=== PATIENT | female | born 1950 | race Caucasian/White ===

== ENCOUNTER 2025-10-18 14:41 | Inpatient (IN) | payer MEDICARE, OTHER ==
[~2025-10-18] VITALS: Ht 162.6 cm; Wt 80.0 kg
[2025-10-18] MEDS ORDERED: 0.9% SODIUM CHLORIDE 10 ML SYRINGE IVP PRN (15:00)
[2025-10-18] MEDS ORDERED: ATOR40TA28 PO (15:09)
[2025-10-18] MEDS ORDERED: SERT-162 PO (15:09)
[2025-10-18] MEDS ORDERED: ALLO100T50 PO (15:09)
[2025-10-18] MEDS ORDERED: BACL10TA PO (15:09)
[2025-10-18] MEDS ORDERED: ATEN-187 PO (15:09)
[2025-10-18] MEDS ORDERED: SEMA3TAB4 PO (15:09)
[2025-10-18] MEDS ORDERED: EMPA25TA3 PO (15:09)
[2025-10-18] MEDS ORDERED: FLUT16SP NASAL (15:09)
[2025-10-18] MEDS ORDERED: HYDR-4072 PO (15:09)
[2025-10-18] MEDS ORDERED: LISI-661 PO (15:09)
[2025-10-18] MEDS ORDERED: SENN-376 PO (15:09)
[2025-10-18 15:30] LABS: PLATELET COUNT (AUTO) 190 K/uL (150-450); RED BLOOD CELL COUNT(AUTO) 3.71 MIL/uL (4.00-5.20); RED CELL DISTRIBUTION WIDTH 18.5 % (11.5-14.5); WHITE BLOOD COUNT (AUTO) 9.7 K/uL (4.5-11.0)
[2025-10-18 15:36] LABS: CALCIUM, TOTAL 8.7 mg/dL (8.8-10.5); CREATININE 3.37 mg/dL (0.60-1.30); GLOMERULAR FILTR. RATE CALC 13 mL/min (>60); GLUCOSE,RANDOM 179 mg/dL (70-110); SODIUM SERUM 134 mmol/L (136-145); UREA NITROGEN, BLOOD 60 mg/dL (7-18)
[2025-10-18] MEDS: SODIUM CHLORIDE 0.9% 2,200 ML IV ONE (15:38)
[2025-10-18 15:45] LABS: ASPARTATE AMINOTRANSFERASE 488 U/L (15-37); TOTAL PROTEIN, SERUM 7.4 g/dL (6.4-8.2)
[2025-10-18 15:46] LABS: LACTIC ACID 0.9 mmol/L (0.4-2.0)
[2025-10-18 15:55] LABS: COVID AG,FIA SOURCE NASAL SWAB
[2025-10-18 16:03] LABS: TROPONIN I-HIGH SENSITIVITY 15 ng/L (<51)
[2025-10-18 16:26] LABS: SARS-COV2 (COVID) ANTIGEN,FIA Negative (Negative)
[2025-10-18 16:30] LABS: INFLUENZA TYPE A NEGATIVE FOR TYPE A (NEGATIVE); INFLUENZA TYPE B NEGATIVE FOR TYPE B (NEGATIVE)
[2025-10-18] MEDS ORDERED: INSU100V37 SQ (16:34)
[2025-10-18] MEDS ORDERED: DEXTROSE 50%-WATER 25 GM/50 ML SYRINGE IVP PRN (16:45)
[2025-10-18 17:30] LABS: APPEARANCE,URINE HAZY (CLEAR); GLUCOSE, URINE (UA) NEGATIVE (NEGATIVE); LEUKOCYTE ESTERASE ,URINE LARGE (NEGATIVE); NITRATE,URINE NEGATIVE (NEGATIVE); OCCULT BLOOD,URINE SMALL (NEGATIVE); SPECIFIC GRAVITIY, URINE 1.019 (1.003-1.030)
[2025-10-18] MEDS: PIPERACILLIN/TAZO 3.375 GM/D5W 50 ML IV ONE (17:42)
[2025-10-18] MEDS: NOREPINEPHRINE 8 MG/0.9 % NACL 250 ML IV PRN (18:20)
[2025-10-18 18:40] LABS: SULFOSALICYLIC ACID,URINE 1+ (Negative)
[2025-10-18 18:41] LABS: SQUAMOUS EPITHELIAL CELL,UR Rare /LPF (None Seen)
[2025-10-18 20:00] VITALS: BP 99/49; PULSE 55; RESP 18; TEMP 97.6; O2SAT 98
[2025-10-18] MEDS: DOCUSATE SODIUM 100 MG CAPSULE PO SCH (21:00)
[2025-10-18] MEDS: ETHYL ALCOHOL 62% ANTISEPTIC NASAL SANITIZER 0.6 ML AMPUL NASAL SCH (21:29)
[2025-10-18] MEDS: CHLORHEXIDINE GLUCONATE 2% TOWELETTE [2'S/6'S] TP SCH (21:30)
[2025-10-18] MEDS ORDERED: NOREPINEPHRINE 8 MG/0.9 % NACL 250 ML IV PRN (21:45)
[2025-10-19] VITALS (12 sets, daily range): BP systolic 82–194; BP diastolic 52–97; PULSE 54–86; RESP 12–25; TEMP 97–102.6; O2SAT 96–100
[2025-10-19] MEDS: HEPARIN SODIUM,PORCINE 5,000 UNITS/ML VIAL SQ SCH (00:36)
[2025-10-19] MEDS ORDERED: SODIUM CHLORIDE 0.9% 250 ML IV ONE (01:10)
[2025-10-19] MEDS: ONDANSETRON HCL 4 MG/2 ML VIAL IVP PRN (01:20)
[2025-10-19] MEDS: PIPERACILLIN SODIUM/TAZOBACTAM 2.25 GM in DEXTROSE 5%-WATER 50 ML IV SCH (01:22)
[2025-10-19] MEDS: METOCLOPRAMIDE HCL 5 MG/ML 2 ML VIAL IVP ONE ×2 (02:15→09:00)
[2025-10-19] MEDS: DEXTROSE 5%-LACTATED RINGERS 1,000 ML IV SCH (02:28)
[2025-10-19 05:20] LABS: GLUCOMETER DEV NAME(LOC) ICU.S7; GLUCOSE,POINT OF CARE 130 MG/DL (70-110)
[2025-10-19 05:29] LABS: PLATELET COUNT (AUTO) 181 K/uL (150-450); RED BLOOD CELL COUNT(AUTO) 3.50 MIL/uL (4.00-5.20); RED CELL DISTRIBUTION WIDTH 18.4 % (11.5-14.5); WHITE BLOOD COUNT (AUTO) 10.7 K/uL (4.5-11.0)
[2025-10-19 05:41] LABS: PHOSPHORUS 4.1 mg/dL (2.5-4.9)
[2025-10-19 06:01] LABS: CALCIUM, TOTAL 8.0 mg/dL (8.8-10.5); CREATININE 3.16 mg/dL (0.60-1.30); GLOMERULAR FILTR. RATE CALC 14.0 mL/min (>60); GLUCOSE,RANDOM 188.0 mg/dL (70-110); SODIUM SERUM 138.0 mmol/L (136-145); UREA NITROGEN, BLOOD 57.0 mg/dL (7-18)
[2025-10-19] MEDS: ACETAMINOPHEN 500 MG/ISO-OSM 50 ML IV ONE (06:33)
[2025-10-19] MEDS: NOREPINEPHRINE 8 MG/0.9 % NACL 250 ML IV PRN (07:00)
[2025-10-19] MEDS: PANTOPRAZOLE SODIUM 40 MG DR TABLET PO SCH (09:00)
[2025-10-19] MEDS ORDERED: ETOMIDATE 2 MG/ML 10 ML VIAL ONE (09:42)
[2025-10-19 09:51] LABS: GLUCOMETER DEV NAME(LOC) ICUN.7; GLUCOSE,POINT OF CARE 180 MG/DL (70-110)
[2025-10-19] MEDS: TRANEXAMIC ACID 1,000 MG in DEXTROSE 5%-WATER 50 ML IV ONE (10:20)
[2025-10-19] MEDS: ETOMIDATE 2 MG/ML 10 ML VIAL IVP ONE (10:38)
[2025-10-19] MEDS: ROCURONIUM BROMIDE 10 MG/ML 5 ML VIAL IVP ONE (10:38)
[2025-10-19] MEDS: CLINDAMYCIN 300 MG/D5% WATER 50 ML IV SCH (11:12)
[2025-10-19 12:08] LABS: ABG A-A DIFF O2 441.6 mmHg (10-20.0); ABG BASE EXCESS -9.3 mmol/L (-2.0-3.0); ABG CARBOXYHEMOGLOBIN 0.3 % (0.5-1.5); ABG HCO3 17.6 mmol/L (21.0-28.0); ABG METHEMOGLOBIN 0.3 % (0.0-1.5); ABG OXYGEN CONTENT 14.7 mL/dL (15.0-23.0); ABG OXYGEN SATURATION 99.2 % (94.0-98.0); ABG OXYHEMOGLOBIN 98.6 % (94.0-98.0); ABG PCO2 35 mmHg (32.0-45.0); ABG PH 7.310 (7.350-7.450); ABG TOTAL HEMOGLOBIN 10.2 G/dL (12.0-16.0); ALLEN TEST, BLOOD GAS Positive; FRACTIONATED INSPIRED OXYGEN 100.0 % (21-100.0); PO2, ARTERIAL BG 239.1 mmHg (83.0-108.0); SITE, BLOOD GAS RT RADIAL; SOURCE, BLOOD GAS ARTERIAL; TEMPERATURE, FAHRENHEIT, BG 97.0 FAHREN (96.0-98.6)
[2025-10-19] MEDS: MAGNESIUM SULFATE 2 GM/WATER 50 ML IV ONE (12:08)
[2025-10-19 12:09] LABS: O2 DEVICE,BLOOD GAS VENTILATOR (ROOM AIR); PATIENT RATE, BG 20.0 min.; PEEP,BG 5 cm H2O; SET RATE, BG 20.0 min.; SPONTANEOUS VT, BG 385 ml; VT, ABG 380 ml
[2025-10-19] MEDS: INSULIN LISPRO 100 UNITS/ML SQ PRN ×2 (12:45→18:30)
[2025-10-19 12:55] LABS: GLUCOMETER DEV NAME(LOC) ICU.S7; GLUCOSE,POINT OF CARE 217 MG/DL (70-110)
[2025-10-19] MEDS ORDERED: DEXTROSE 50%-WATER 25 GM/50 ML SYRINGE IVP PRN (13:15)
[2025-10-19] MEDS: RINGERS SOLUTION,LACTATED 1,000 ML IV ONE (13:32)
[2025-10-19 13:54] LABS: CREATININE,URINE RANDOM 73.3 mg/dL (30.0-125.0); PROTEIN,URINE RANDOM 139.0 mg/dL (0-11.9); UREA NITROGEN,URINE RANDOM 372.0 mg/dL (350-1000)
[2025-10-19] MEDS: POTASSIUM CHL 10 MEQ/WATER 50 ML IV SCH (14:26)
[2025-10-19 15:31] LABS: CALCIUM, TOTAL 8.2 mg/dL (8.8-10.5); CREATININE 3.12 mg/dL (0.60-1.30); GLOMERULAR FILTR. RATE CALC 15.0 mL/min (>60); GLUCOSE,RANDOM 238.0 mg/dL (70-110); SODIUM SERUM 139.0 mmol/L (136-145); UREA NITROGEN, BLOOD 55.0 mg/dL (7-18)
[2025-10-19] MEDS: PROPOFOL 1000 MG/ISO-OSM 100 ML IV PRN (15:52)
[2025-10-19 18:41] LABS: GLUCOMETER DEV NAME(LOC) ICUN.7; GLUCOSE,POINT OF CARE 184 MG/DL (70-110)
[2025-10-19 21:01] LABS: CALCIUM, TOTAL 8.4 mg/dL (8.8-10.5); CREATININE 2.95 mg/dL (0.60-1.30); GLOMERULAR FILTR. RATE CALC 16.0 mL/min (>60); GLUCOSE,RANDOM 181.0 mg/dL (70-110); SODIUM SERUM 139.0 mmol/L (136-145); UREA NITROGEN, BLOOD 52.0 mg/dL (7-18)
[2025-10-19] MEDS: FentaNYL CIT 1000MCG/0.9% NACL 100 ML IV PRN (21:26)
[2025-10-20] VITALS (14 sets, daily range): BP systolic 107–129; BP diastolic 54–70; PULSE 50–75; RESP 20–21; TEMP 98.7–101; O2SAT 95–100
[2025-10-20 05:31] LABS: GLUCOMETER DEV NAME(LOC) ICUN.7; GLUCOSE,POINT OF CARE 116 MG/DL (70-110)
[2025-10-20 05:39] LABS: PLATELET COUNT (AUTO) 204 K/uL (150-450); RED BLOOD CELL COUNT(AUTO) 3.39 MIL/uL (4.00-5.20); RED CELL DISTRIBUTION WIDTH 18.8 % (11.5-14.5); WHITE BLOOD COUNT (AUTO) 12.2 K/uL (4.5-11.0)
[2025-10-20 05:49] LABS: CALCIUM, TOTAL 8.5 mg/dL (8.8-10.5); CREATININE 2.9 mg/dL (0.60-1.30); GLOMERULAR FILTR. RATE CALC 16.0 mL/min (>60); GLUCOSE,RANDOM 162.0 mg/dL (70-110); SODIUM SERUM 140.0 mmol/L (136-145); UREA NITROGEN, BLOOD 49.0 mg/dL (7-18)
[2025-10-20 05:55] LABS: PHOSPHORUS 3.6 mg/dL (2.5-4.9)
[2025-10-20 08:21] LABS: GLUCOMETER DEV NAME(LOC) ICUN.7; GLUCOSE,POINT OF CARE 152 MG/DL (70-110)
[2025-10-20] MEDS ORDERED: POTASSIUM CHL 10 MEQ/WATER 50 ML IV ONE (10:00)
[2025-10-20] MEDS: POTASSIUM CHL 10 MEQ/WATER 50 ML IV SCH (10:28)
[2025-10-20] MEDS: SODIUM CHLORIDE 0.9% 1,000 ML IV SCH (10:28)
[2025-10-20] MEDS ORDERED: SODIUM CHLORIDE 0.9% 250 ML IV ONE (11:08)
[2025-10-20] MEDS ORDERED: HEPARIN SODIUM,PORCINE 5,000 UNITS/ML VIAL SQ SCH (12:00)
[2025-10-20 12:26] LABS: GLUCOMETER DEV NAME(LOC) ICUN.7; GLUCOSE,POINT OF CARE 129 MG/DL (70-110)
[2025-10-20 18:40] LABS: GLUCOMETER DEV NAME(LOC) ICUN.7; GLUCOSE,POINT OF CARE 134 MG/DL (70-110)
[2025-10-20] MEDS: HEPARIN SODIUM,PORCINE 5,000 UNITS/ML VIAL SQ SCH (23:37)
[2025-10-21] VITALS (11 sets, daily range): BP systolic 116–152; BP diastolic 61–71; PULSE 48–93; RESP 20–26; TEMP 97.6–98.9; O2SAT 93–100
[2025-10-21 04:43] LABS: C.DIFF GDH ANTIGEN, Stool Negative (Negative); C.DIFF TOXINS A&B, Stool Negative (Negative)
[2025-10-21 05:21] LABS: GLUCOMETER DEV NAME(LOC) ICUN.7; GLUCOSE,POINT OF CARE 140 MG/DL (70-110)
[2025-10-21 05:48] LABS: PLATELET COUNT (AUTO) 249 K/uL (150-450); RED BLOOD CELL COUNT(AUTO) 3.28 MIL/uL (4.00-5.20); RED CELL DISTRIBUTION WIDTH 18.8 % (11.5-14.5); WHITE BLOOD COUNT (AUTO) 12.0 K/uL (4.5-11.0)
[2025-10-21 06:00] LABS: CALCIUM, TOTAL 8.4 mg/dL (8.8-10.5); CREATININE 2.48 mg/dL (0.60-1.30); GLOMERULAR FILTR. RATE CALC 19.0 mL/min (>60); GLUCOSE,RANDOM 149.0 mg/dL (70-110); PHOSPHORUS 3.8 mg/dL (2.5-4.9); SODIUM SERUM 141.0 mmol/L (136-145); UREA NITROGEN, BLOOD 42.0 mg/dL (7-18)
[2025-10-21] MEDS: PIPERACILLIN SODIUM/TAZOBACTAM 2.25 GM in DEXTROSE 5%-WATER 50 ML IV SCH (09:19)
[2025-10-21 14:11] LABS: ABG BASE EXCESS -9.1 mmol/L (-2.0-3.0); ABG CARBOXYHEMOGLOBIN 0.2 % (0.5-1.5); ABG HCO3 17.7 mmol/L (21.0-28.0); ABG METHEMOGLOBIN 0.3 % (0.0-1.5); ABG OXYGEN CONTENT 13.1 mL/dL (15.0-23.0); ABG OXYGEN SATURATION 93.3 % (94.0-98.0); ABG OXYHEMOGLOBIN 92.8 % (94.0-98.0); ABG PCO2 35 mmHg (32.0-45.0); ABG PH 7.310 (7.350-7.450); ABG TOTAL HEMOGLOBIN 10.0 G/dL (12.0-16.0); FRACTIONATED INSPIRED OXYGEN 30.0 % (21-100.0); PO2, ARTERIAL BG 72.0 mmHg (83.0-108.0); SOURCE, BLOOD GAS ARTERIAL; TEMPERATURE, FAHRENHEIT, BG 98.7 FAHREN (96.0-98.6)
[2025-10-21 14:12] LABS: ABG A-A DIFF O2 100.8 mmHg (10-20.0); O2 DEVICE,BLOOD GAS VENTILATOR (ROOM AIR); PATIENT RATE, BG 23.0 min.; PEEP,BG 5 cm H2O; PRESSURE SUPPORT, BG 5 cm H2O; SITE, BLOOD GAS RT BRACHIAL; SPONTANEOUS VT, BG 310 ml; VENT MODE, BG Press. Support Vent. (ROOM AIR)
[2025-10-21 14:55] LABS: GLUCOMETER DEV NAME(LOC) ICU.S7; GLUCOSE,POINT OF CARE 139 MG/DL (70-110)
[2025-10-21 17:15] LABS: GLUCOMETER DEV NAME(LOC) ICUN.7; GLUCOSE,POINT OF CARE 139 MG/DL (70-110)
[2025-10-21] MEDS ORDERED: SODIUM CHLORIDE 0.9% 250 ML IV ONE (20:29)
[2025-10-21 21:21] LABS: GLUCOMETER DEV NAME(LOC) ICUN.7; GLUCOSE,POINT OF CARE 134 MG/DL (70-110)
[2025-10-22] VITALS: BP 168/68; PULSE 92; RESP 15; TEMP 100.2; O2SAT 98
[2025-10-22 04:00] VITALS: BP 140/69; PULSE 82; RESP 26; TEMP 99.4; O2SAT 82
[2025-10-22 06:42] LABS: PLATELET COUNT (AUTO) 290 K/uL (150-450); RED BLOOD CELL COUNT(AUTO) 3.39 MIL/uL (4.00-5.20); RED CELL DISTRIBUTION WIDTH 18.6 % (11.5-14.5); WHITE BLOOD COUNT (AUTO) 9.2 K/uL (4.5-11.0)
[2025-10-22 07:05] LABS: CALCIUM, TOTAL 8.6 mg/dL (8.8-10.5); CREATININE 2.2 mg/dL (0.60-1.30); GLOMERULAR FILTR. RATE CALC 22.0 mL/min (>60); GLUCOSE,RANDOM 130.0 mg/dL (70-110); SODIUM SERUM 145.0 mmol/L (136-145); UREA NITROGEN, BLOOD 38.0 mg/dL (7-18)
[2025-10-22 07:21] LABS: GLUCOMETER DEV NAME(LOC) ICU.S7; GLUCOSE,POINT OF CARE 131 MG/DL (70-110)
[2025-10-22 07:21] LABS: GLUCOMETER DEV NAME(LOC) ICU.S7; GLUCOSE,POINT OF CARE 119 MG/DL (70-110)
[2025-10-22 08:00] VITALS: BP 157/80; PULSE 70; RESP 14; TEMP 99.1; O2SAT 97
[2025-10-22] MEDS: POTASSIUM CHL 10 MEQ/WATER 50 ML IV SCH (10:31)
[2025-10-22] MEDS ORDERED: SODIUM CHLORIDE 0.9% 250 ML IV ONE (11:28)
[2025-10-22] MEDS: SODIUM CHLORIDE 0.45% 1,000 ML IV SCH (11:31)
[2025-10-22 12:00] VITALS: BP 133/65; PULSE 74; RESP 15; TEMP 99.2; O2SAT 95
[2025-10-22 13:36] LABS: GLUCOMETER DEV NAME(LOC) ICU.S7; GLUCOSE,POINT OF CARE 119 MG/DL (70-110)
[2025-10-22 16:00] VITALS: BP 135/59; PULSE 96; RESP 12; TEMP 98.1; O2SAT 96
[2025-10-22 19:44] VITALS: BP 167/67; PULSE 88; RESP 17; TEMP 98.1; O2SAT 94
[2025-10-22 20:05] LABS: GLUCOMETER DEV NAME(LOC) ICU.S7; GLUCOSE,POINT OF CARE 229 MG/DL (70-110)
[2025-10-22] MEDS: CefTRIAXone 1 GM/DEXTROSE 50 ML IV SCH (21:04)
[2025-10-23 00:17] VITALS: BP 174/70; PULSE 85; RESP 19; TEMP 98.4; O2SAT 95
[2025-10-23 04:26] VITALS: BP 149/53; PULSE 92; RESP 16; TEMP 97.2; O2SAT 95
[2025-10-23 07:48] VITALS: BP 152/77; PULSE 101; RESP 18; TEMP 98.2; O2SAT 93
[2025-10-23 07:59] LABS: PLATELET COUNT (AUTO) 299 K/uL (150-450); RED BLOOD CELL COUNT(AUTO) 3.40 MIL/uL (4.00-5.20); RED CELL DISTRIBUTION WIDTH 18.9 % (11.5-14.5); WHITE BLOOD COUNT (AUTO) 8.3 K/uL (4.5-11.0)
[2025-10-23 08:19] LABS: CALCIUM, TOTAL 8.5 mg/dL (8.8-10.5); CREATININE 1.69 mg/dL (0.60-1.30); GLOMERULAR FILTR. RATE CALC 30.0 mL/min (>60); GLUCOSE,RANDOM 157.0 mg/dL (70-110); SODIUM SERUM 140.0 mmol/L (136-145); UREA NITROGEN, BLOOD 33.0 mg/dL (7-18)
[2025-10-23 08:31] LABS: GLUCOMETER DEV NAME(LOC) 5S.2E; GLUCOSE,POINT OF CARE 165 MG/DL (70-110)
[2025-10-23 08:31] LABS: GLUCOMETER DEV NAME(LOC) 5S.2E; GLUCOSE,POINT OF CARE 174 MG/DL (70-110)
[2025-10-23 11:20] VITALS: BP 153/79; PULSE 96; RESP 15; TEMP 98.1; O2SAT 93
[2025-10-23] MEDS: POTASSIUM CHLORIDE 20 MEQ ER TABLET PO ONE (11:38)
[2025-10-23] MEDS ORDERED: POTASSIUM CHLORIDE 10% 40 MEQ/30 ML LIQUID UDCUP PO ONE (12:15)
[2025-10-23] MEDS ORDERED: LOPERAMIDE HCL 2 MG CAPSULE PO PRN (12:45)
[2025-10-23 14:21] LABS: GLUCOMETER DEV NAME(LOC) 5S.2E; GLUCOSE,POINT OF CARE 206 MG/DL (70-110)
[2025-10-23 16:02] VITALS: BP 168/74; PULSE 83; RESP 17; TEMP 97.7; O2SAT 93
[2025-10-23 18:16] VITALS: BP 154/84; PULSE 90; RESP 18; O2SAT 93
[2025-10-23 21:16] LABS: GLUCOMETER DEV NAME(LOC) 5S.2E; GLUCOSE,POINT OF CARE 187 MG/DL (70-110)
== END 2025-10-23 18:15 | DRG 871 ==
LOC: EMS 14:41 → EDH 16:44 → ICU 19:55 → 5S 10-22 18:10
PROVIDERS: ADMIT Internal Medicine; ATTEND Internal Medicine
PROC: 0BH17EZ Insertion of Endotracheal Airway into Trachea, Via Natural or Artificial Opening (ICD-10-PCS; principal; 2025-10-19)
PROC: 5A1945Z Respiratory Ventilation, 24-96 Consecutive Hours (ICD-10-PCS; 2025-10-19)
PROC: 05HY33Z Insertion of Infusion Device into Upper Vein, Percutaneous Approach (ICD-10-PCS; 2025-10-19)
DX: A41.9 Sepsis, unspecified organism (principal); G92.8 Other toxic encephalopathy; J96.00 Acute respiratory failure, unspecified whether with hypoxia or hypercapnia; J69.0 Pneumonitis due to inhalation of food and vomit; J15.0 Pneumonia due to Klebsiella pneumoniae; N17.0 Acute kidney failure with tubular necrosis; N39.0 Urinary tract infection, site not specified; D64.9 Anemia, unspecified; E11.21 Type 2 diabetes mellitus with diabetic nephropathy; I12.9 Hypertensive chronic kidney disease with stage 1 through stage 4 chronic kidney disease, or unspecified chronic kidney disease; N18.9 Chronic kidney disease, unspecified; E87.20 Acidosis, unspecified; G90.89 Other disorders of autonomic nervous system; T46.4X1A Poisoning by angiotensin-converting-enzyme inhibitors, accidental (unintentional), initial encounter; Z20.822 Contact with and (suspected) exposure to COVID-19; E11.22 Type 2 diabetes mellitus with diabetic chronic kidney disease; T44.7X1A Poisoning by beta-adrenoreceptor antagonists, accidental (unintentional), initial encounter; T42.8X1A Poisoning by antiparkinsonism drugs and other central muscle-tone depressants, accidental (unintentional), initial encounter; E78.00 Pure hypercholesterolemia, unspecified; E87.6 Hypokalemia; Z96.653 Presence of artificial knee joint, bilateral; Z88.2 Allergy status to sulfonamides; Z85.828 Personal history of other malignant neoplasm of skin; Y92.89 Other specified places as the place of occurrence of the external cause
CPT/HCPCS: 36245; 36569; 70450; 71045; 71250; 74176; 76705; 76770; 76937; 80048; 80076; 81001; 81002; 82140; 82271; 82570; 82805; 82962; 83036; 83605; 83735; 83880; 84100; 84132; 84145; 84156; 84300; 84484; 84540; 85025; 85610; 87040; 87070; 87077; 87081; 87086; 87186; 87205; 87324; 87449; 87804; 89055; 92610; 93005; 94002; 94003; 96361; 96365; 97162; 97167; 97530; 97535; 99291; J0131; J0360; J0696; J1644; J2405; J2543; J2704; J2765; J3010; J3475; J3480; J3490; J7030; J7050; J7060; J7120; 36415-L1; 36415-TC